=== PATIENT | male | born 1995 | race Caucasian/White ===

== ENCOUNTER 2024-09-14 05:34 | Emergency (ER) | payer OTHER, SELFPAY ==
--- NOTE | 2024-09-14 05:36 | ED.GENADULT ---
HPI - General Adult General Date Seen: 09/14/24 Chief complaint: Edema Stated complaint: Neck swelling R side Time Seen by Provider: 09/14/24 05:36 History of Present Illness HPI narrative: 28 yo M who was sent to the emergency department after a phone call to the [facility] triage nurse for a swollen lymph node in his neck. He is generally healthy. He has been sick with what he thinks was probably influenza for the past several days. For 4-5 days he had had symptoms of cough, sore throat, body aches, headache, fatigue. He had also had a couple of days of epigastric abdominal pain for the past couple of days. Overall that illness was getting better yesterday be was starting to improve his cough and overall symptom. He notes that overnight he had increasing sore throat and swelling in his neck. He really did not have any neck pain or swelling at all yesterday or when he went to bed and he woke up overnight with definite swelling underneath his right side of his jaw bone and in the right front of his neck. When he lays down flat he feels a little bit short of breath. He has pain with swallowing (actually affecting both the right and left sides, not just the right size). He has felt chilled and sweaty tonight but has not had an objective fever. He still coughing but overall getting better. Not otherwise short of breath. He has a history of mono was a young child. No history of malignancy. 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 No toothaches. Related Data Home Medications ?Medication ?Instructions ?Recorded ?Confirmed No Known Home Medications 09/14/24 09/14/24 Allergies Allergy/AdvReac Type Severity Reaction Status Date / Time No Known Drug Allergies Allergy Verified 09/14/24 05:40 PFSH PFS Social History Non-prescribed substance use: denies use service: No Exam Narrative: Exam Narrative: Constitutional: Appears well-developed and well-nourished. Alert. Conversant. Non toxic. Phonation normal. No hot potato voice. HENT: Head: Atraumatic. Nose: Nose normal. Mouth/Throat: Oral mucosa is clear and moist. no trismus. Pharynx erythematous. Tonsils symmetric. No tonsillar exudate. Uvula midline. Eyes: Conjunctivae normal. EOM normal. Pupils equal, round, and reactive to light. No scleral icterus. Neck: Normal range of motion. Neck supple. No tracheal deviation present. He does have fairly prominent right sided swelling underneath the ramus of the mandible. This does not correlate to the angle of the mandible to suggest para tightest. Suspect either a anterior cervical or so inflamed submental lymph node. He is quite tender and swollen that area. No overlying erythema. No definite fluctuance. He is also mildly tender in the left side of the neck, but no palpable swelling on the left. He does not have any other anterior or posterior, supraclavicular, pre or postauricular lymphadenopathy. Cardiovascular: Normal rate, regular rhythm. No gallop. No friction rub. No murmur heard. Pulmonary/Chest: Effort normal. No stridor. No respiratory distress. No wheezes. No rales. No rhonchi . Abdominal: Soft. No hepatosplenomegaly. No CVA tenderness No distension. No mass. No tenderness. No rebound. No guarding. Musculoskeletal: RUE: Normal range of motion. No tenderness. No deformity LUE: Normal range of motion. No tenderness. No deformity RLE: Normal range of motion. No edema. No tenderness. No deformity LLE: Normal range of motion. No edema. No tenderness. No deformity Lymph: See neck exam. No axillary adenopathy. Neurological: Alert and oriented to person, place, and time. Normal strength. CN II-VII intact. No sensory deficit. GCS eye subscore is 4. GCS verbal subscore is 5. GCS motor subscore is 6. Normal coordination Skin: Skin is warm and dry. No rash noted. No pallor. Normal capillary refill. Psychiatric: Normal mood. Normal affect. Const: Vital Signs, click to edit/add: Vital Signs - 24 hr 09/14/24 05:40 Temperature 98.3 F Pulse Rate [Left P ulse Oximeter] 76 Respiratory Rate 16 Blood Pressure [Ri ght Upper Arm] 121/82 Pulse Oximetry 97 Oxygen Delivery Me thod Room Air Course Vital Signs Vital signs: Initial Vital Signs Temperature 98.3 F 09/14/24 05:40 Temperature Source Oral 09/14/24 05:40 Pulse Rate 76 09/14/24 05:40 Pulse Rhythm Regular 09/14/24 05:40 Respiratory Rate 16 09/14/24 05:40 Blood Pressure 121/82 09/14/24 05:40 Blood Pressure Mean 95 09/14/24 05:40 Blood Pressure Position Sitting 09/14/24 05:40 Pulse Oximetry 97 09/14/24 05:40 Oxygen Delivery Method Room Air 09/14/24 05:40 Vital Signs Temperature 98.3 F 09/14/24 05:40 Pulse Rate 76 09/14/24 05:40 Respiratory Rate 16 09/14/24 05:40 Blood Pressure 121/82 09/14/24 05:40 Pulse Oximetry 97 09/14/24 05:40 Oxygen Delivery Method Room Air 09/14/24 05:40 Temperature 98.3 F 09/14/24 05:40 Pulse Rate 76 09/14/24 05:40 Respiratory Rate 16 09/14/24 05:40 Blood Pressure 121/82 09/14/24 05:40 Pulse Oximetry 97 09/14/24 05:40 Oxygen Delivery Method Room Air 09/14/24 05:40 Medical Decision Making MDM Narrative Medical decision making narrative: Pleasant generally healthy 28-year-old male presenting to the ER today with concern for acute onset of swelling affecting his right anterior lateral neck just below the ramus of the mandible on the right side. He has been sick for several days with cough, headache, fatigue who he Rue show an influenza like illness but has not been formally tested for flu. This swelling under his neck began just tonight. He was normal when he went to bed and now has fairly significant swelling. Differential here is broad. Consider possible lymphadenitis, reactive lymphadenopathy to strep throat, mono, or other URI. Location of the swelling is not typical for parotitis. He does not have any evidence for dental caries to suggest an evolving Virgilio's angina or submental abscess. He does have notable erythema of his posterior oropharynx without any exudate of tonsillitis. Tonsils are symmetric and uvula is midline. No evidence for PEDIATRIC NURSE PRACTITIONER. He does not have any hot potato voice or difficulty with range of motion in his neck. No clear evidence for retropharyngeal abscess. We do not detect other lymphadenopathy to suggest a malignancy . Because of the fairly rapid progression of the swelling over 6 or 8 hours, we did obtain CT imaging to make sure there was not an expanding mass or abscess there. CT scan suggests that this is a inflamed right submandibular gland with surrounding erythema. No evidence for a salivary duct stone. Strep is negative. Laboratory workup shows normal white count. Differential shows 43% neutrophils, 37% lymphocytes, 11.5% monos. LFTs are normal. [place] is negative. At this point the patient is hemodynamically stable, breathing easily, oxygenating normally, able to swallow. He is nontoxic. I think he is safe for outpatient management. Cause of the submandibular gland inflammation is not clear. Could be reactive to his recent viral infection. No clear cell a very gland stone. Consider possible bacterial infection. Will start the patient on Augmentin to cover for oral parish. Recommend lozenges and the lemon drops to help promote salivation. Discussed precautions for return to the ER. Anticipated recovery over the next 48 hours or so. If not improving, should return to the ER or recheck with his regular doctor. Work note provided [facility] prescription for Augmentin b.i.d. for 7 days Lab Data Labs: Lab Results 09/14/24 Range/Units 06:10 WBC 5.39 (4.50-11.00) K/uL RBC 5.19 (4.30-5.90) m/uL Hgb 15.3 (13.5-17.5) gm/dL Hct 44.2 (37.0-53.0) % MCV 85 (80-100) fL MCH 30 (26-34) pg MCHC 35 (32-36) gm/dL RDW Coeff of Aries 11.8 (11.5-15.5) % Plt Count 178 (140-440) K/uL Neut % (Auto) 43.6 (42.0-72.0) % Lymph % (Auto) 37.7 (20-44) % [place] % (Auto) 11.5 H (0.0-11.0) % Eos % (Auto) 5.9 (0.0-7.0) % Baso % (Auto) 0.7 (0.0-3.0) % Neut # (Auto) 2.35 (1.7-7.0) K/uL Lymph # (Auto) 2.03 (0.90-2.90) K/uL [place] # (Auto) 0.60 (0.00-0.90) K/UL Eos # (Auto) 0.32 (0.00-0.50) K/uL Baso # (Auto) 0.04 (0.00-0.30) K/uL Abs Immat Gran (auto) 0.03 (0.00-0.30) K/uL Imm/Tot Granulo (auto) 0.6 % Sodium 143 (135-149) mmol/L Potassium 3.7 (3.6-5.1) mmol/L Chloride 105 (96-114) mmol/L Carbon Dioxide 28 (20-32) mmol/L Anion Gap 10 (7-15) mEq/L BUN 13 (5-24) mg/dL Creatinine 0.9 (0.5-1.5) mg/dL Estimated Creat Clear 135.32 Estimated GFR 120 ml/min Glucose 97 (60-115) mg/dL Calcium 9.1 (8.4-10.6) mg/dL Total Bilirubin 0.7 (0.1-1.5) mg/dL AST 27 (12-35) U/L ALT 21 (4-50) U/L Alkaline Phosphatase 48 (40-150) U/L Total Protein 7.9 (6.0-8.3) g/dL Albumin 4.8 (3.3-5.0) g/dL Monoscreen Negative (Negative) Group A Strep DNA NOT DETECTED (Not Detectd) Imaging Data CT neck soft tssue wiht contrast: Attestation: I have reviewed the pertinent imaging results. Radiologist's impression: IMPRESSION: Asymmetric enlargement and enhancement of the right submandibular gland concerning for sialadenitis. There is adjacent edema without organized fluid collection or airway narrowing. No definite sialolith. Discharge Plan Discharge Clinical Impression: Acute bacterial sialadenitis, Submandibular gland inflammation Patient Disposition: Home, Self-Care Instructions: Sialoadenitis (ED) Additional Instructions: As we discussed, your labs and CT scan suggest that you have inflammation affecting your right submandibular gland. At this point we are concerned that your gland is inflamed because of a bacterial infection. Please start on the antibiotics this morning and take them twice daily for 7 days. Monitor the area carefully. If you are having increasing swelling, worsening pain, trouble swallowing, trouble breathing, higher fevers, or other problems, please come back to the ER right away to be rechecked. Typically, for a bacterial infection it will take 48 hours before you start to see substantial improvement. To treat mild pain you can use ibuprofen. Drink plenty of fluids to stay hydrated. You can try lozenges or lemon drops to help promote saliva production. Prescriptions: No Action No Known Home Medications Follow Up/Referrals: Provider,Not a Local [Primary Care Provider] - Stand Alone Forms: [employer] Travel Guide Info Instructions
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
--- OUTSIDE RECORDS SUMMARY | 2024-09-14 05:36 | XMS_ITS | Clinical Summary ---
Author Organization [facility] Address [place], [place] [address] Care Team Providers Care Photogrammetric Tech Name Role Phone Pcp, No Primary Care Provider Unavailabl e Allergies No known active allergies Medications No known medications Active Problems Problem Noted Date Diagnosed Date Unspecified otitis media 09/16/2011 Encounters Date Type Department Care Team Description 09/14/[address] [facility] [address] [place] [address] Pcp, No Swollen Lymph Nodes from Last 3 Months Immunizations Name Administration Dates Next Due DTaP 02/01/2002, 8,05/13/1997, 997,1996 HIB-HepB (Comvax) 10/21/1997,02/28/1997,12/14/18 97 Inactivated Polio Vaccine 02/01/2002,,02/28/1997, 997 Influenza A (H1N1), Live Intranasal 10/02/2009 MMR 03/21/2009,01/30/1998 Tdap 03/21/2009 Varicella Vaccine 03/21/2009,10/21/1997 Family History Medical History Relation Name Comments Good Health Brother Good Health Father Good Health Mother Relation Name Status Comments Brother Alive Father Alive Mother Alive Social History Tobacco Use Types Packs/Day Years Used Date Smoking Tobacco: Light Smoker Cigarettes Smokeless Tobacco: Former Chew Quit: 02/13/2018 Tobacco Cessation:Ready to Q uit: Yes; Counseling Given: Yes Alcohol Use Standard Drinks/Week Comments Yes 0 (1 standard drink = 0.6 oz pur e alcohol) Drinks 3 times weekly PHQ-2 Answer Date Recorded PHQ-2 TOTAL SCORE 0 02/14/2020 Social Connections Answer Date Recorded Frequency of Communication with Friends and Fami ly Not on file 07/31/2021 Financial Resource Strain Answer Date R ecorded Difficulty of Paying Living Expenses Not on file 07/31/2021 Difficulty of Paying Living Expenses Not on file 07/31/2021 Sex and Gender Information Value Date Recorded Sex Assigned at Not on file 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 Gender Identity Not on file Sexual Orientation Not on file Occupation Industry Job Start Date Job End Date student Not on file Not on file Not on file Obstetrics History Last Filed Vital Signs Vital Sign Reading Time Taken Comments Blood Pressure 120/68 02/14/2020 1:57 PM CDT Pulse 63 02/14/2020 1:57 PM CDT Temperature 36.5 C (97.7 F) 02/14/2020 1:57 PM CDT Respiratory Rate 18 12/26/2015 1:34 PM CDT Oxygen Saturation 98% 02/14/2020 1:57 PM CDT Inhaled Oxygen Concentration - - Weight 84.6 kg (186 lb 6.4 oz) 02/14/2020 1:57 P M CDT Height 180 cm (5' 10.87) 02/14/2020 1:57 PM CDT Body Mass Index 26.1 02/14/2020 1:57 PM CDT Plan of Treatment Health Maintenance Due Date Last Done Comments HIV for age 15-65 10/07/2011 Hepatitis C screening for age 18-79 2014 Tetanus booster 03/21/2019 03/21/2009 BMI (ht and wt on same day) for age 18+ 02/13/2021 02/14/2020, 10/21/2018, 11/24/2017, Additional history exists Depression screening for age 12+ 02/13/2021 02/14/2020, 11/24/2017 COVID-19 vaccine series ( season) 2024 Influenza for age 9-49 04/04/2024 10/02/2009 Tdap Completed 03/21/2009 Pneumococcal series for age 6-49 Aged Out No longer eligible based on patient's age [place] [id number] A[employer] [facility] [employer] [place] [address] [facility] [address] [id number] Care Teams Photogrammetric Tech Relationship Specialty Start Date End Date Pcp, No . PCP - General 08/11/24
[2024-09-14 05:40] VITALS: BP 121/82; PULSE 76; RESP 16; TEMP 36.8; O2SAT 97; BMI 28.5
[2024-09-14 06:17] LABS: Basophils Absolute Auto 0.04 K/uL (0.00-0.30); Basophils Percent Auto 0.7 % (0.0-3.0); Eosinophils Absolute Auto 0.32 K/uL (0.00-0.50); Eosinophils Percent Auto 5.9 % (0.0-7.0); Hematocrit 44.2 % (37.0-53.0); Hemoglobin* 15.3 gm/dL (13.5-17.5); Immature Granulocytes Abs Auto 0.03 K/uL (0.00-0.30); Immature Granulocytes Pct Auto 0.6 %; Lymphocytes Absolute Auto 2.03 K/uL (0.90-2.90); Lymphocytes Percent Auto 37.7 % (20-44); Mean Corpuscular HGB Conc 35 gm/dL (32-36); Mean Corpuscular Hemoglobin 30 pg (26-34); Mean Corpuscular Volume 85 fL (80-100); Monocytes Percent Auto 11.5 % (0.0-11.0); Neutrophils Absolute Auto 2.35 K/uL (1.7-7.0); Neutrophils Percent Auto 43.6 % (42.0-72.0); Platelet Count* 178 K/uL (140-440); RDW Coefficient of Variation % 11.8 % (11.5-15.5); Red Blood Count 5.19 m/uL (4.30-5.90); White Blood Count* 5.39 K/uL (4.50-11.00)
[2024-09-14 06:19] LABS: Slide Review Reflex No
--- OUTSIDE RECORDS SUMMARY | 2024-09-14 06:24 | XMS_ITS | Clinical Summary ---
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 PCP - General 08/11/24
--- OUTSIDE RECORDS SUMMARY | 2024-09-14 06:24 | XMS_ITS | Clinical Summary ---
Author Organization [facility] Address [facility] [place] [address] Care Team Providers Care Treasury Consultant Name Role Phone Establish, Need To MD Primary Care Provider [phone] Source Comments If you need additional information that is not available on Care Everywhere, please contact our Medical Records Department during business hours (Friday - Friday, 8 am - 5 pm) at . During nonbusiness hours, please contact our Trauma and Emergency Center at .[facility] Allergies No known active allergies Medications * [...] patient's age to complete this topic Insurance [address] [address] [id number] [employer] INSURANCE Care Teams Treasury Consultant Relationship Specialty Start Date End Date Establish, Need To, [address] [facility] [place] [address] PCP - General GRAPE CRUSHER 01/31/21
[2024-09-14 06:29] LABS: Albumin* 4.8 g/dL (3.3-5.0); Chloride* 105 mmol/L (96-114); Sodium* 143 mmol/L (135-149)
[2024-09-14 06:30] LABS: Mono Screen* Negative (Negative); Potassium* 3.7 mmol/L (3.6-5.1)
[2024-09-14 06:32] LABS: Alanine Aminotransferase* 21 U/L (4-50); Anion Gap 10 mEq/L (7-15); Aspartate Amino Transferase* 27 U/L (12-35); Blood Urea Nitrogen* 13 mg/dL (5-24); Carbon Dioxide* 28 mmol/L (20-32); Creatinine* 0.9 mg/dL (0.5-1.5); Est. Creatinine Clearance* 135.32; Estimated Glomerular Filt Rate 120 ml/min; Total Protein* 7.9 g/dL (6.0-8.3)
[2024-09-14 06:33] LABS: Alkaline Phosphatase* 48 U/L (40-150); Bilirubin Total* 0.7 mg/dL (0.1-1.5); Calcium* 9.1 mg/dL (8.4-10.6); Glucose* 97 mg/dL (60-115)
[2024-09-14 06:43] LABS: Strep A DNA Probe* NOT DETECTED (Not Detectd)
== END 2024-09-14 07:12 | disposition home or self-care (01) ==
PROVIDERS: Emergency Provider Emergency Medicine
DX: K11.8 Other diseases of salivary glands (principal); K11.21 Acute sialoadenitis
CPT/HCPCS: 36415; 70491; 80053; 85025; 86308; 87651; 99283; 99284; Q9967